=== PATIENT | male | born 1990 | race Caucasian/White ===

== ENCOUNTER 2017-11-03 01:07 | Emergency (ER) | payer OTHER ==
[2017-11-03] MEDS: DIPHENHYDRAMINE 50 MG INJ IM (03:22)
== END 2017-11-03 03:44 | disposition home or self-care (01) ==
LOC: FTE 01:07
DX: G47.00 Insomnia, unspecified (principal); F17.210 Nicotine dependence, cigarettes, uncomplicated
CPT/HCPCS: 96372; 99284-25

== ENCOUNTER 2017-12-04 21:20 | Emergency (ER) | payer OTHER ==
[2017-12-05] MEDS: AZITHROMYCIN 250 MG TAB PO (02:05)
[2017-12-05] MEDS: CEFTRIAXONE 250 MG INJ IM (02:05)
[2017-12-05] MEDS: DOXYCYCLINE 100 MG TAB PO (02:06)
[2017-12-05] MEDS: HYDROCODONE/APAP (5/325) TAB PO (02:06)
[2017-12-05 02:13] LABS: ADD UMIC NO; UR ASCORBIC ACID NEGATIVE (NEGATIVE); UR BILIRUBIN (Dip) NEGATIVE (NEGATIVE); UR BLOOD (Dip) NEGATIVE (NEGATIVE); UR CLARITY CLEAR (CLEAR); UR COLOR STRAW (YELLOW); UR GLUCOSE (Dip) NEGATIVE (NEGATIVE); UR KETONES (Dip) NEGATIVE (NEGATIVE); UR LEUKOCYTE ESTERASE (Dip) NEGATIVE Leu/ul (NEGATIVE); UR NITRITE (Dip) NEGATIVE (NEGATIVE); UR TOTAL PROTEIN (Dip) NEGATIVE (NEGATIVE); UR UROBILINOGEN (Dip) NEGATIVE (NEGATIVE)
== END 2017-12-05 04:23 | disposition home or self-care (01) ==
LOC: FTE 21:20
DX: N50.89 Other specified disorders of the male genital organs (principal)
CPT/HCPCS: 76870; 81003; 87591; 96372; 99285-25